=== PATIENT | female | born 1960 | race Caucasian/White ===

== ENCOUNTER 2021-07-31 16:58 | Emergency (ER) | payer MEDICAID ==
[~2021-07-31] VITALS: Ht 154.9 cm; Wt 85.0 kg
[2021-07-31] MEDS ORDERED: SODIUM CHLORIDE 0.9% 1,000 ML IV ONE (17:45)
[2021-07-31] MEDS ORDERED: MECLIZINE HCL 25 MG TABLET PO ONE (17:45)
[2021-07-31 17:47] LABS: GLUCOMETER DEV NAME(LOC) ERT.5; GLUCOSE,POINT OF CARE 103 MG/DL (70-110)
[2021-07-31] MEDS: ONDANSETRON HCL 4 MG/2 ML VIAL IVP ONE ×3 (17:49→18:22)
[2021-07-31 17:52] LABS: BASOPHILS % (AUTO) 0.8 % (0.0-2.0); HEMATOCRIT 40.6 % (36-46); HEMOGLOBIN 13.4 g/dL (12.0-16.0); LYMPHOCYTES # (AUTO) 2.5 K/uL (1.0-4.8); LYMPHOCYTES % (AUTO) 32.7 % (22.0-44.0); MEAN CORPUSCULAR HEMOGLOBIN 27.9 pg (26.0-34.0); MEAN CORPUSCULAR HGB CONC 33.1 G/dL (31.0-37.0); MEAN CORPUSCULAR VOLUME 84 fL (80-100); MONOCYTES # (AUTO) 0.6 K/uL (0.1-1.0); MONOCYTES % (AUTO) 7.6 % (2.0-9.0); NEUTROPHILS # (AUTO) 4.3 K/uL (1.8-7.7); NEUTROPHILS % (AUTO) 56.9 % (40.0-70.0); PLATELET COUNT (AUTO) 288 K/uL (150-450); RED BLOOD CELL COUNT(AUTO) 4.81 MIL/uL (4.00-5.20); RED CELL DISTRIBUTION WIDTH 15.1 % (11.5-14.5)
[2021-07-31 18:00] LABS: CALCIUM, TOTAL 9.4 mg/dL (8.8-10.5); CREATININE 0.99 mg/dL (0.60-1.30); POTASSIUM 4.4 mmol/L (3.5-5.1)
[2021-07-31 18:06] LABS: ALBUMIN 4.2 g/dL (3.4-5.0); BILIRUBIN,TOTAL 0.3 mg/dL (0.1-1.0); TOTAL PROTEIN, SERUM 8.2 g/dL (6.4-8.2)
[2021-07-31 18:26] VITALS: BP 118/86
== END 2021-07-31 18:36 | disposition home or self-care (01) ==
LOC: EMS 16:58
DX: R42 Dizziness and giddiness (principal)
CPT/HCPCS: 36415; 80053; 82962; 85025; 96361; 96374; 99283; J2405; J7030